=== PATIENT | female | born 1995 | race Caucasian/White ===

== ENCOUNTER 2017-10-02 14:08 | Emergency (ER) | payer MEDICAID ==
--- NOTE | 2017-10-02 14:43 | ED Physician Chart ---
ED Chief Complaint/HPI - Patient Information Date Seen:: 10/02/17 Time Seen:: 14:20 Chief Complaint:: Recurrent nausea/vomiting for 4-5 days. History of Present Illness:: Brought in by private auto for the above reason. Vomitus consists of gastric content. No hematemesis. No fever. Pt also has had constant abdominal pain, characterized as crampy and primarily localized at L abdomen. Last BM 3 days ago that was hard in consistency, dark but no melena. No hematochezia or melena. Pt is on menstruation. No vaginal discharge. No dysuria, urinary urgency or freguency. No gross hematuria. Allergies:: Allergies Allergy/AdvReac Type Severity Reaction Status Date / Time No Known Allergies Allergy Verified 10/02/17 14:23 Vitals:: Vital Signs - 8 hr 10/02/17 14:24 Temp 98.6 F HR 97 RR 20 BP 157/97 O2 Sat % 98 Historian:: Patient Family MD/PCP:: unknown LMP:: Now Review:: Nurse's Note Reviewed ED Review of Systems - Review of Systems General/Constitutional: No fever, No weight loss, No weakness, No edema, No loss of appetite Skin: No rash, No bruising Head: No headache, No light-headedness Eyes: No loss of vision, No pain, No diplopia ENT: No earache, No nasal drainage, No sore throat Neck: No neck pain, No swelling, No thyromegaly, No stiffness, No mass noted Cardio Vascular: No chest pain, No palpitations, No edema Pulmonary: No SOB, No cough, No wheezing GI: Nausea, Vomiting, No diarrhea, Pain, No melena, No hematochezia, Constipation, No hematemesis G/U: No dysuria, No frequency, No hematuria [employer]: No vaginal discharge, No abnormal vaginal bleed Musculoskeletal: No bone or joint pain, No muscle pain Endocrine: No polyuria, No polydipsia Psychiatric: No prior psych history Hematopoietic: No bruising, No lymphadenopathy Allergic/Immuno: No urticaria, No angioedema Neurological: No syncope, No focal symptoms, No weakness, No paresthesia, No headache, No dizziness, No confusion ED Past Medical History - Past Medical History Past Medical History: No significant medical hx Family History: None Social History: Non Smoker, No Alcohol, No Drug Use, Single, Other (lives with her sister.) Employment:: Unemployed. Surgical History: None Psychiatricy History: None Medication: None Family Medical History - Family Member Paternal Grandmother Ethnicity: Living Status: Still Living Hx Family Diabetes: Yes ED Physical Exam - Physical Examination General/Constitutional: Awake, Well-developed, well-nourished, Alert, No distress, GCS 15, Non-toxic appearing, Ambulatory Other Gen/Cons comments:: Breathes comfortably, speaks clearly, and interacts normally. Head: Atraumatic Eyes: Lids, conjuctiva normal, PERRL, EOMI Skin: No rash, No ecchymosis, No lymphadenopathy ENMT: External ears, nose nl, Nasal exam nl, Oropharynx nl Other ENMT comments:: Mucous membrane is slightly dry. Neck: Nontender, Full ROM w/o pain, No nuchal rigidity, No mass, No stridor Respiratory: Nl effort/Exclusion, Clear to Auscultation, No Wheeze/Rhonchi/Rales Cardio Vascular: RRR, No murmur, gallop, rubs GI: No organomegaly, No hernia, Normal BS's, Nondistended, No mass/bruits Other GI comments:: Mild tenderness at LUQ and LLQ. No R/G. Rectal exam: deferred per pt's request as she already feels better. Other comments:: Pelvic exam: deferred per pt's request as she now feels well. Extremities: No tenderness or effusion, No edema Neuro/Psych: Alert/oriented (oriented x 3.), Judgement/insight normal, Mood normal, Normal gait, No focal deficits ED Labs/Radiology/EKG Results - Lab Results Results: Laboratory Tests 10/02/17 10/02/17 10/02/17 14:50 15:20 15:20 WBC 9.5 RBC 5.19 H Hgb 15.6 Hct 46.4 MCV 89.5 MCH 30.0 MCHC Differential 33.5 RDW 12.0 Plt Count 306 MPV 8.4 Neutrophils % 67.3 Lymphocytes % 21.5 Monocytes % 10.2 H Eosinophils % 0.3 Basophils % 0.7 PT 12.9 H INR 1.23 PTT (Actin FS) 27.0 Sodium Potassium Chloride Carbon Dioxide Anion Gap BUN Creatinine Est GFR ( Amer) Est GFR (Non-Af Amer) BUN/Creatinine Ratio Glucose Calcium Total Bilirubin AST ALT Alkaline Phosphatase Total Protein Albumin Globulin Albumin/Globulin Ratio Amylase Lipase Urine Source CLEAN C Urine Color YELLOW Urine Clarity CLEAR Urine pH 6.5 Ur Specific [place] 1.020 Urine Protein TRACE Urine Glucose (UA) NEGATIVE Urine Ketones 15 H Urine Blood SMALL H Urine Nitrate NEGATIVE Urine Bilirubin SMALL H Urine Urobilinogen 2.0 Ur Leukocyte Esterase NEGATIVE Urine RBC 2-5 Urine WBC NONE SEEN Ur Epithelial Cells NONE SEEN Urine Bacteria NONE SEEN 10/02/17 15:20 WBC RBC Hgb Hct MCV MCH MCHC Differential RDW Plt Count MPV Neutrophils % Lymphocytes % Monocytes % Eosinophils % Basophils % PT INR PTT (Actin FS) Sodium 132 L Potassium 3.3 L Chloride 96 L Carbon Dioxide 26.4 Anion Gap 12.9 BUN 14 Creatinine 0.7 Est GFR ( Amer) > 60.0 Est GFR (Non-Af Amer) > 60.0 BUN/Creatinine Ratio 20.0 Glucose 113 H Calcium 10.1 Total Bilirubin 1.4 H AST 28 ALT 58 H Alkaline Phosphatase 65 Total Protein 8.0 Albumin 5.3 Globulin 2.7 Albumin/Globulin Ratio 2.0 H Amylase 74 Lipase 66 Urine Source Urine Color Urine Clarity Urine pH Ur Specific [place] Urine Protein Urine Glucose (UA) Urine Ketones Urine Blood Urine Nitrate Urine Bilirubin Urine Urobilinogen Ur Leukocyte Esterase Urine RBC Urine WBC Ur Epithelial Cells Urine Bacteria Laboratory Last Values WBC 9.5 Th/cmm (4.8-10.8) 10/02/17 15:20 RBC 5.19 Mil/cmm (3.80-5.10) H 10/02/17 15:20 Hgb 15.6 gm/dL (12-16) 10/02/17 15:20 Hct 46.4 % (41.0-60) 10/02/17 15:20 MCV 89.5 fl (81-100) 10/02/17 15:20 MCH 30.0 pg (27.0-31.0) 10/02/17 15:20 MCHC Differential 33.5 pg (28.0-36.0) 10/02/17 15:20 RDW 12.0 % (11.5-20.0) 10/02/17 15:20 Plt Count 306 Th/cmm (150-400) 10/02/17 15:20 MPV 8.4 fl 10/02/17 15:20 Neutrophils % 67.3 % (40.0-80.0) 10/02/17 15:20 Lymphocytes % 21.5 % (20.0-50.0) 10/02/17 15:20 Monocytes % 10.2 % (2.0-10.0) H 10/02/17 15:20 Eosinophils % 0.3 % (0.0-5.0) 10/02/17 15:20 Basophils % 0.7 % (0.0-2.0) 10/02/17 15:20 PT 12.9 SECONDS (9.5-11.5) H 10/02/17 15:20 INR 1.23 (0.5-1.4) 10/02/17 15:20 PTT (Actin FS) 27.0 SECONDS (26.0-38.0) 10/02/17 15:20 Sodium 132 mEq/L (136-145) L 10/02/17 15:20 Potassium 3.3 mEq/L (3.5-5.1) L 10/02/17 15:20 Chloride 96 mEq/L (98-107) L 10/02/17 15:20 Carbon Dioxide 26.4 mEq/L (21.0-31.0) 10/02/17 15:20 Anion Gap 12.9 (7.0-16.0) 10/02/17 15:20 BUN 14 mg/dL (7-25) 10/02/17 15:20 Creatinine 0.7 mg/dL (0.6-1.2) 10/02/17 15:20 Est GFR ( Amer) > 60.0 ml/min (>90) 10/02/17 15:20 Est GFR (Non-Af Amer) > 60.0 ml/min 10/02/17 15:20 BUN/Creatinine Ratio 20.0 10/02/17 15:20 Glucose 113 mg/dL (70-105) H 10/02/17 15:20 Calcium 10.1 mg/dL (8.6-10.3) 10/02/17 15:20 Total Bilirubin 1.4 mg/dL (0.3-1.0) H 10/02/17 15:20 AST 28 U/L (13-39) 10/02/17 15:20 ALT 58 U/L (7-52) H 10/02/17 15:20 Alkaline Phosphatase 65 U/L (34-104) 10/02/17 15:20 Total Protein 8.0 gm/dL (6.0-8.3) 10/02/17 15:20 Albumin 5.3 gm/dL (3.7-5.3) 10/02/17 15:20 Globulin 2.7 gm/dL 10/02/17 15:20 Albumin/Globulin Ratio 2.0 (1.0-1.8) H 10/02/17 15:20 Amylase 74 U/L (29-103) 10/02/17 15:20 Lipase 66 U/L (11-82) 10/02/17 15:20 Urine Source CLEAN C 10/02/17 14:50 Urine Color YELLOW 10/02/17 14:50 Urine Clarity CLEAR (CLEAR) 10/02/17 14:50 Urine pH 6.5 (4.6 - 8.0) 10/02/17 14:50 Ur Specific [place] 1.020 (1.005-1.030) 10/02/17 14:50 Urine Protein TRACE mg/dL (NEGATIVE) 10/02/17 14:50 Urine Glucose (UA) NEGATIVE mg/dL (NEGATIVE) 10/02/17 14:50 Urine Ketones 15 mg/dL (NEGATIVE) H 10/02/17 14:50 Urine Blood SMALL (NEGATIVE) H 10/02/17 14:50 Urine Nitrate NEGATIVE (NEGATIVE) 10/02/17 14:50 Urine Bilirubin SMALL (NEGATIVE) H 10/02/17 14:50 Urine Urobilinogen 2.0 E.U./dL (0.2 - 1.0) 10/02/17 14:50 Ur Leukocyte Esterase NEGATIVE (NEGATIVE) 10/02/17 14:50 Urine RBC 2-5 /hpf (0-5) 10/02/17 14:50 Urine WBC NONE SEEN /hpf (0-5) 10/02/17 14:50 Ur Epithelial Cells NONE SEEN /lpf (FEW) 10/02/17 14:50 Urine Bacteria NONE SEEN /hpf (NONE SEEN) 10/02/17 14:50 POC test: negative. - Radiology Results Results: CT of abdomen/pelvis without contrast: Minimal haziness adjacent to an otherwise normal appearing appendix. finding of questionable significance, correlate clinically. Mild right adnexal fullness with hypodensity. Probable ovarian cystic changes. Official report per Dr. Cortez Sweeney, radiologist. ED Septic Shock - . Is Septic Shock (SBP<90, OR Lactate>4 mmol\L) present?: No - <6hrs of presentation: Vital Signs: Vital Signs - 8 hr 10/02/17 14:24 Temp 98.6 F HR 97 RR 20 BP 157/97 O2 Sat % 98 ED Reassessment (Disposition) - Reassessment Reassessment:: 1615 Pt has been repeatedly evaluated. Pt feels better after IV hydration. Abdominal pain has subsided. Pt does not need any pain control at the present. CT report and remaining lab results are pending. 1735 Pt continues to improve. Pt denies any abdominal pain. No recurrent N/V. No diarrhea. Pt has been ambulating without assistance without difficulty. Lab, CT findings have been reviewed with pt. Pt requests to go home now and does not want further observation/management in hospital. Aftercare instructions have been given. Reassessment Condition:: Improved - Diagnosis Diagnosis:: Abdominal pain probably related to fecal impaction. Stable and currently asymptomatic. Mild hypokalemia. Stable. - Aftercare/Follow up Instructions Aftercare/Follow-Up Instructions:: Refer to Discharge Instructions Notes:: Bedrest for today. Clear liquid diet for now. Advance diet as tolerated starting tomorrow. Increase oral intake of potassium rich foodstuffs such as banana, etc. May use fleet enema as directed for constipation. Abdominal pain instructions given. F/U with Dr. Martinez or PCP of patient's choice in 1-2 days for recheck with repeat lab study: CMP. Return to ER immediately if condition worsens or if any further questions/problems. Medication Prescribed:: None - Patient Disposition Discharge/Transfer:: Home Time:: 17:35 Condition at Disposition:: Stable, Improved ED Discharge Plan - Patient Disposition Admit/Discharge/Transfer: PT DISCHARGED HOME Condition at Disposition: Improved Instructions: Hypokalemia, Diet for Diarrhea, Adult, Nausea and Vomiting, Fecal Impaction
[2017-10-02] MEDS ORDERED: Sodium Chloride 0.9% 1,000 ML IV ONE (14:46)
[2017-10-02 15:29] LABS: % BASOPHILS 0.7 % (0.0-2.0); % EOSINOPHILS 0.3 % (0.0-5.0); % LYMPHOCYTES 21.5 % (20.0-50.0); % MONOCYTES 10.2 % (2.0-10.0); % NEUTROPHILS 67.3 % (40.0-80.0); BASOPHILE ABSOLUTE 0.1 Th/cumm (0-0.2); HEMATOCRIT 46.4 % (41.0-60); HEMOGLOBIN 15.6 gm/dL (12-16); MEAN CELL VOLUME 89.5 fl (81-100); MEAN CORPUSCULAR HGB CONC 33.5 pg (28.0-36.0); MEAN PLATELET VOLUME 8.4 fl; NEUTROPHILE ABSOLUTE 6.4 Th/cmm (1.8-8.0); PLATELET COUNT 306 Th/cmm (150-400); RED BLOOD COUNT 5.19 Mil/cmm (3.80-5.10); WHITE BLOOD COUNT 9.5 Th/cmm (4.8-10.8)
[2017-10-02 15:36] LABS: URINE MICROSCOPIC INDICATED? YES; URINE SOURCE CLEAN C
[2017-10-02 15:39] LABS: URINE BILIRUBIN SMALL (NEGATIVE); URINE BLOOD SMALL (NEGATIVE); URINE GLUCOSE (UA) NEGATIVE (NEGATIVE); URINE KETONE 15 mg/dL (NEGATIVE); URINE LEUKOCYTE ESTERASE NEGATIVE (NEGATIVE); URINE NITRATE NEGATIVE (NEGATIVE); URINE PH 6.5 (4.6 - 8.0); URINE PROTEIN TRACE mg/dL (NEGATIVE)
[2017-10-02 15:43] LABS: INR 1.23 (0.5-1.4); PROTHROMBIN TIME (TEST) 12.9 SECONDS (9.5-11.5)
[2017-10-02 15:45] LABS: ALBUMIN 5.3 gm/dL (3.7-5.3); ALKALINE PHOSPHATASE 65 U/L (34-104); AMYLASE SERUM 74 U/L (29-103); ANION GAP 12.9 (7.0-16.0); BILIRUBIN,TOTAL 1.4 mg/dL (0.3-1.0); BUN - UREA NITROGEN 14 mg/dL (7-25); CALCIUM SERUM 10.1 mg/dL (8.6-10.3); CARBON DIOXIDE 26.4 mEq/L (21.0-31.0); CHLORIDE 96 mEq/L (98-107); CREATININE - SERUM 0.7 mg/dL (0.6-1.2); GFR AFRICAN-AMERICAN > 60.0 ml/min (>90); GFR NON AFRICAN-AMERICAN > 60.0 ml/min; GLUCOSE 113 mg/dL (70-105); LIPASE 66 U/L (11-82); POTASSIUM SERUM 3.3 mEq/L (3.5-5.1); SGOT 28 U/L (13-39); SGPT/ALT 58 U/L (7-52); SODIUM SERUM 132 mEq/L (136-145)
[2017-10-02 15:54] LABS: URINE CLARITY CLEAR (CLEAR); URINE COLOR YELLOW
[2017-10-02 15:55] LABS: URINE BACTERIA NONE SEEN /hpf (NONE SEEN); URINE EPITHELIAL CELLS NONE SEEN /lpf (FEW); URINE WBC NONE SEEN /hpf (0-5)
[2017-10-02] MEDS ORDERED: Potassium Chloride 20 mEq ER Tab PO ONE ×2 (16:37→16:41)
--- NOTE | 2017-10-03 09:09 | Diagnostic Imaging Report ---
CT scan of the abdomen and pelvis without intravenous contrast History: Abdominal pain Total DLP equals 305 CTDI equals 6.8 Axial sections were obtained from the xiphoid process down to the pubic symphysis. The study demonstrates normal aeration of lung parenchyma the bases. The liver demonstrates a normal size and contour. No focal lesions are seen. The spleen appears normal. No abnormalities are seen in the region of the pancreas. There is no evidence of obstructive uropathy or nephrolithiasis 1.3 cm low density lesion is noted in left inferior kidney which might represent angiomyolipoma. Clinical correlation and CT examination with contrast might be helpful if clinically indicated. The appendix is poorly visualized. Clinical correlation recommended. The exam of the pelvis demonstrates preservation of normal fat planes. No abnormal soft tissue masses. No abnormal fluid collections. The uterus is enlarged fibroid infiltration cannot be excluded. Ovarian cystic changes are present. Ultrasound examination pelvis might be helpful. IMPRESSION: 1. Poor visualization appendix. 2. Prominent uterus question ovarian cyst ultrasound examination might be helpful. 3. Question of angiomyolipoma left kidney.
== END 2017-10-02 18:00 | disposition home or self-care (01) ==
LOC: ER 14:08
DX: E87.6 Hypokalemia (principal); R10.12 Left upper quadrant pain; R10.32 Left lower quadrant pain
CPT/HCPCS: 99285; 96374; 74176; 36415; 85025; 85610; 81001; 82150; 83690; 80053; J2405